=== PATIENT | female | born 1975 | race American Indian/Alaskan Native ===

== ENCOUNTER 2018-08-24 13:53 | Outpatient (CLI) | payer OTHER | END 2018-08-25 13:50 | disposition home or self-care (01) | LOC: OBS/DEL 13:53 | DX: O26.892 Other specified pregnancy related conditions, second trimester (principal); K52.89 Other specified noninfective gastroenteritis and colitis; Z34.02 Encounter for supervision of normal first pregnancy, second trimester ==

== ENCOUNTER 2018-11-02 20:35 | Inpatient (IN) | payer OTHER ==
[~2018-11-02] VITALS: Ht 165.1 cm; Wt 76.7 kg
[2018-11-02] MEDS ORDERED: PRENATAL TABLE1 EAC1 PO (21:59)
[2018-11-25] MEDS ORDERED: CODE1TAB37 PO (12:27)
== END 2018-11-25 13:07 | disposition home or self-care (01) | DRG 786 ==
LOC: LDR 20:35 → OB/GYN 20:35
PROVIDERS: ADMIT Obstetrics & Gynecology
PROC: BY4FZZZ Ultrasonography of Third Trimester, Single Fetus (ICD-10-PCS; 2018-11-15)
PROC: 3E0P7VZ Introduction of Hormone into Female Reproductive, Via Natural or Artificial Opening (ICD-10-PCS; 2018-11-22)
PROC: 3E033VJ Introduction of Other Hormone into Peripheral Vein, Percutaneous Approach (ICD-10-PCS; 2018-11-22)
PROC: 4A1HXCZ Monitoring of Products of Conception, Cardiac Rate, External Approach (ICD-10-PCS; 2018-11-22)
PROC: 10D00Z1 Extraction of Products of Conception, Low, Open Approach (ICD-10-PCS; principal; 2018-11-22 17:30)
DX: O61.0 Failed medical induction of labor (principal); O14.13 Severe pre-eclampsia, third trimester; O60.14X0 Preterm labor third trimester with preterm delivery third trimester, not applicable or unspecified; Z3A.36 36 weeks gestation of pregnancy; Z37.0 Single live birth